=== PATIENT | female | born 1990 | race Caucasian/White ===

== ENCOUNTER 2017-04-03 08:42 | Day surgery (SDC) | payer MEDICAID ==
[2017-04-03] MEDS ORDERED: NORMAL SALINE 1,000 ML IV ONE ×3 (09:00→11:30)
[2017-04-03 09:25] LABS: Hematocrit 27.4 % (37.0-47.0); Hemoglobin 8.8 gm/dL (12.5-16.0); Mean Cell Volume 89.5 fl (78-100); Mean Corpuscular Hemoglobin 28.8 pg (27-31); Mean Corpuscular Hgb Conc 32.1 g/dl (32-36); Mean Platelet Volume 10.9 fl (6.0-9.5); Neutrophil # 6.1 K/mm3 (1.3-6.0); Neutrophil % 77.7 % (42-75.0); Platelet Count 135 K/mm3 (150-450); Red Blood Count 3.06 M/mm3 (4.2-5.4); Red Cell Distribution Width 15.4 % (11.5-14.0); White Blood Count 7.9 K/mm3 (4.0-10.5)
[2017-04-03 09:34] LABS: INR 1.03 INR (0.90-1.10); Partial Thrombolplastin Time 28.4 Seconds (24-32); Prothrombin Time (Patient) 10.7 Seconds (9.4-11.4)
[2017-04-03] MEDS ORDERED: METHYLERGONOVINE MALEATE 0.2 MG/ML AMPUL IM ONE ×3 (09:57→10:15)
[2017-04-03] MEDS ORDERED: RINGER'S SOLUTION,LACTATED 1,000 ML IV PRN (09:57)
[2017-04-03] MEDS ORDERED: LORazepam 2 MG/ML DISP.SYRIN IV ONE (10:34)
[2017-04-03] MEDS ORDERED: LORazepam 2 MG/ML DISP.SYRIN ONE (10:36)
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
[2017-04-03] MEDS ORDERED: RINGER'S SOLUTION,LACTATED 1,000 ML IV ONE (11:05)
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
[2017-04-03] MEDS ORDERED: ceFAZolin SODIUM 1 GM VIAL IV ONE (11:15)
--- NOTE | 2017-04-03 11:53 | OR ---
Operative Report - Dictated Report Narrative: Operative report: 04/03/2017 Preoperative diagnosis: Profuse vaginal bleeding, acute blood loss anemia Postoperative diagnosis: Same with the addition of vaginal laceration Procedure: Exam under anesthesia, repair of vaginal laceration Surgeon: Lina Doherty D.O. Communications Maintainer: OR staff Anesthesia: sedation IV fluids: 500 Milliliters Urine output: Adequate clear urine, Marshall in place Findings: Large blood clots within the vaginal vault and a midline first-degree vaginal laceration with active bleeding EBL: 50 Milliliters during the procedure, approximately 1000 mL's were on the patient's pad and Mohit prior to the vaginal prep Drains: Marshall Pathology: None Complications: None Condition: Stable, fluids and blood transfusing at the end of the procedure The patient was taken to the operating room. Anesthesia was found to be adequate. The patient was prepped with a vigorous external prep and a gentle internal prep in the dorsal lithotomy position. After draping the patient in addition no internal prep was made removing blood clots from the vagina. Retractors were then placed in the vagina and a bleeding first-degree laceration was noted on the posterior vagina approximately 5 cm in length. 2-0 Vicryl was then used in a running lock fashion to obtain hemostasis. A second suture was used to oversew this area as it continued to bleed slightly. Complete hemostasis was obtained. The vagina again was inspected for additional lacerations. No blood was noted in the vault. The cervix was intact without bleeding. The remaining vaginal jacome and posterior fornix were intact. The repaired laceration was again inspected and was again hemostatic. Retractors were removed. The Marshall was left in place due to the patient receiving 5 L of fluid and one unit of blood prior to surgery and diuresing well. The patient tolerated the procedure well. Sponge, lap, needle, and instrument counts were correct throughout the entire procedure. The patient was taken to the recovery room in stable condition.
[2017-04-03] MEDS ORDERED: oxyCODONE HCL/ACETAMINOPHEN 1 TAB TABLET PO PRN (11:54)
[2017-04-03] MEDS ORDERED: IBUPROFEN 600 MG TABLET PO PRN (11:54)
[2017-04-03 15:56] VITALS: BP 111/69
== END 2017-04-03 10:30 | disposition home or self-care (01) ==
LOC: ER 08:42 → AMB 10:29
PROVIDERS: ATTEND Obstetrics & Gynecology Gynecologic Oncology
PROC: 0UQG7ZZ Repair Vagina, Via Natural or Artificial Opening (ICD-10-PCS; principal; 2017-04-03 10:47)
DX: S31.41XA Laceration without foreign body of vagina and vulva, initial encounter (principal); D62 Acute posthemorrhagic anemia; F17.200 Nicotine dependence, unspecified, uncomplicated; W50.0XXA Accidental hit or strike by another person, initial encounter
CPT/HCPCS: 36415; 57200; 76856; 81241; 84702; 85025; 85610; 85730; 86850; 86900; 96365; 96372; 99285; P9016

== ENCOUNTER 2017-06-11 08:37 | Emergency (ER) | payer MEDICAID ==
[2017-06-11 08:54] VITALS: BP 123/38
== END 2017-06-11 09:50 | disposition left against medical advice (07) ==
LOC: ER 08:37
DX: Z53.21 Procedure and treatment not carried out due to patient leaving prior to being seen by health care provider (principal)

== ENCOUNTER 2017-07-18 12:23 | Emergency (ER) | payer SELFPAY ==
[2017-07-18 12:40] VITALS: BP 107/67
--- NOTE | 2017-07-18 13:49 | ERNOTE ---
[facility] Date of Service: 07/18/17 Presenting Symptoms: other - Sore throat and ear pain Time Seen by Provider: 07/18/17 13:47 Source: patient, RN notes reviewed Exam Limitations: no limitations - Immun/Allergies/Home Medications Immunizations: IMMUNIZATION HX Immunizations Up to Date Yes History of Influenza Vaccine No Hx Pneumococcal Vaccination No Allergies/Adverse Reactions: Allergies Allergy/AdvReac Type Severity Reaction Status Date / Time No Known Allergies Allergy Verified 07/18/17 12:36 Home Medications: HOME MEDICATIONS Etonogestrel [Nexplanon] 68 mg SQ DAILY 07/18/17 [Last Taken Unknown] - History of Present Illness Narrative: 26 year old female with right ear pain that began last evening. She took Motrin last night without improvement. She also reports a cough and sore throat. Date (Duration): 07/17/17 ENT Location: Present: ear (R) Prearrival Treatment: Present: over the counter meds Prior Treament: Denies: recently seen Review of Systems - Review of Systems Constitutional: Present: malaise. Absent: fever, chills EYE: Absent: eye pain, eye discharge ENT: Present: ear pain, nose congestion, sore throat. Absent: ear discharge, nasal drainage, throat swelling Respiratory: Present: cough. Absent: shortness of breath, wheezing Cardiology: Absent: chest pain, syncope Gastrointestinal/Abdominal: Absent: nausea, abdominal pain Genitourinary: Present: no symptoms reported Musculoskeletal: Absent: back pain, joint pain Skin: Absent: rash, lesions Neurological: Absent: headache, dizziness/light-headedness Endocrine: Present: no symptoms reported Hematologic/Lymphatic: Present: no symptoms reported Psych: Present: no symptoms reported - Patient's Past Medical History Patient History - Medical: Migraines Patient History - Cardiac/Respiratory: No pertinent hx Patient History - Cancer: No Hx of Cancer Patient History - Surgical Procedures: T & A Patient History - Other: None LMP (females 10-50): other - Social History Living Situations: home Abuse History: No History of abuse Psych History: No pertinent hx Smoking Status: Never smoker Have you smoked in the past 12 months: No Do you dip or chew tobacco: No Alcohol Use: none Drug Use: none - Immunizations Immunizations Up to Date: Yes Hx Pneumococcal Vaccination: No History of Influenza Vaccine: No Physical Exam - Physical Exam General Appearance: Present: alert, no apparent distress, thin Head Exam: Present: tenderness - Right TMJ region. Absent: swelling Eye Exam: Normal inspection: bilateral Ears, Nose, Throat: Present: nasal congestion, pharyngeal erythema. Absent: abnormal TM (R), abnormal TM (L), pharyngeal swelling, dry mucous membranes Neck: Present: supple, tender lateral - Right. Absent: lymphadenopathy (R), lymphadenopathy (L) Respiratory: Present: no respiratory distress, normal breath sounds, no accessory muscle use, lungs clear Cardiovascular/Chest: Present: regular rate, rhythm, no murmur Extremity Exam: Present: normal inspection, normal range of motion Neurological Exam: Present: alert, oriented, normal mood/affect, no motor/ sensory deficits Skin Exam: Present: normal color, warm/dry ED Progress - Results and Orders Patient's Lab Results:: I have reviewed the patient's lab results. - Vital Signs Patient's Vital Signs:: I have reviewed the patient's vital signs. Vital Signs: Vital Signs 07/18/17 12:36 Temperature 36.2 C L Respiratory 15 Rate Blood Pressure 107/67 - Progress/Reassessment Chief Complaint: Earache Progress:: Unchanged Departure Clinical Impression: Upper respiratory infection, viral - Departure Disposition: Home self-care Condition: Stable Instructions: Upper Respiratory Infection, Adult, [id number] Referrals: Claire Dover MD [Primary Care Provider] -
== END 2017-07-18 14:12 | disposition home or self-care (01) ==
LOC: ER 12:23
DX: J06.9 Acute upper respiratory infection, unspecified; B97.89 Other viral agents as the cause of diseases classified elsewhere
CPT/HCPCS: 87081; 87430; 99282

== ENCOUNTER 2018-05-17 00:10 | Inpatient (IN) ==
[2018-05-17] MEDS ORDERED: RINGER'S SOLUTION,LACTATED 1,000 ML IV ONE (00:35)
[2018-05-17] MEDS ORDERED: DEXTROSE 5%-LACTATED RINGERS 1,000 ML IV PRN (00:35)
[2018-05-17] MEDS ORDERED: ONDANSETRON HCL/PF 2 MG/ML VIAL IV PRN ×2 (00:35→10:05)
[2018-05-17] MEDS ORDERED: OXYTOCIN/DEXTROSE 5%-WATER 30 UNITS/500 ML BAG IV ONE ×2 (00:35→15:38)
[2018-05-17] MEDS: MISOPROSTOL 100 MCG TABLET VG PRN ×2 (00:55→05:12)
[2018-05-17 05:28] LABS: Cocaine Ur Negative (NEGATIVE); Urine Barbiturate Negative (NEGATIVE); Urine Benzodiazepines Negative (NEGATIVE); Urine Opiates Negative (NEGATIVE); Urine PCP Negative (NEGATIVE); Urine THC Negative (NEGATIVE)
[2018-05-17] MEDS ORDERED: BUPIVACAINE HCL/0.9 % NACL/PF 250 ML EP PRN (10:05)
[2018-05-17] MEDS ORDERED: NALOXONE HCL 1 MG/1 ML SYRG IV PRN (10:05)
--- NOTE | 2018-05-17 10:07 | ANES ---
Anesthesia Pre Procedure Eval Vitals/Labs: Last Vital Signs Temp 36.4 C 05/17/18 01:32 Pulse 83 05/17/18 01:32 Resp 18 05/17/18 01:32 BP 115/59 05/17/18 01:32 Pulse Ox 98 05/17/18 01:32 HOME MEDICATIONS [id number] 400 mcg-om3 35 mg-dha 25 mg-epa 5 mg-fish oil chewable tablet 2 tab PO DAILY tab 02/13/18 [Last Taken Unknown] Allergies/Adverse Reactions: Allergies Allergy/AdvReac Type Severity Reaction Status Date / Time No Known Allergies Allergy Verified 05/17/18 00:41 - Planned Procedure Planned Procedure: LABOR Medication List Reviewed:: Yes Allergies Verified: Yes Medical History (Last Reviewed 05/17/18 @ 10:05 by Ace Castano CRNA) Anemia Onset Date: ~2016 Anemia affecting Onset Date: ~2016 Currently Onset Date: ~11/2017 Migraine Onset Date: Unknown Cervical dysplasia Onset Date: ~09/28/16 Constipation Onset Date: Unknown Fibroids, intramural Onset Date: Unknown Hemorrhoids Onset Date: Unknown Abscess Onset Date: ~01/28/16 Chlamydia Onset Date: ~2005 induced hypertension, antepartum Onset Date: ~12/2011 Scabies Onset Date: ~02/2016 Thrombocytopenia affecting Onset Date: ~2011 Surgical History (Last Reviewed 05/17/18 @ 10:05 by Ace Castano CRNA) H/O LEEP Onset Date: ~10/06/16 H/O vaginal surgery Onset Date: ~04/03/17 History of colposcopy Onset Date: ~09/28/16 History of incision and drainage Onset Date: ~01/27/16 History of tonsillectomy Onset Date: ~2005 Family History (Last Reviewed 05/17/18 @ 10:05 by Ace Castano CRNA) Father Psoriasis Grandmother Blood clots in brain Mother Osteoarthritis Eczema - Family Anesthesia History Family History:: no untoward family reactions to anesthesia, no familial bleeding tendencies, no family history of clotting disorders, no family history of premature - Airway/Neck/Teeth Within Normal Limits:: Yes Teeth Condition: Intact Neck Exam: non-tender Mallampatti Score: 2 Thyromental (T-M) distance: > 6 cm Mandibulo Hyoid distance: > 3 cm - Respiratory Respiratory: chest non-tender, lungs clear Smoking Status: Never smoker Sleep Apnea currently treated: No Sleep Apnea by current assessment: No - Cardiovascular Patient History - Cardiac/Respiratory: No pertinent hx Tolerates Activity: Fair Heart Sounds: S1 & S2, Regular - Anesthesia Assessment and Plan ASA Class: PS, II, E Anesthesia Type Plan: Epidural - CSE for labor analgesia
[2018-05-17] MEDS ORDERED: fentaNYL CITRATE/PF 50 MCG/ML AMPUL IT SCH (10:15)
--- NOTE | 2018-05-17 10:27 | ANES ---
Post Anesthesia Discharge - Transfer of Care Transfer of Care handoff given to nurse: Yes - Discharge from PACU Discharge from PACU when meets criteria: Yes - Comfortable now.
--- NOTE | 2018-05-17 10:29 | ANES ---
Anesthesia Procedure Note Procedure Note: ANESTHESIA PROCEDURE NOTE Date of Procedure: 05/17/2018 Time of procedure: 10:05 AM. Performed by: Ace Castano CRNA, MSN Communications Strategist: Angelita Gooden RN. Preprocedure diagnosis: Active labor, labor pain. Post procedure diagnosis: Same. Procedure:Epidural for labor analgesia L3 4. Indications: Labor pain. Findings: See below. Details of the procedure: The patient was placed on the side of the bed in sitting positionand prepped with DuraPrep then draped in a sterile fashion. Lidocaine 1% was infiltrated to the skin and subcutaneous tissues at the level of the L34 interspace. An 18-gauge Touhy needle was used to approach the epidural space with loss of resistance technique. Once loss of resistance was achieved a 27-gauge spinal needle was passed through the epidural needle and CSF was contacted. After CSF returned, 20 mcg of fentanyl was injected in the spinal needle was removed the epidural catheter was then threaded approximately 4 cm in the epidural needle was removed. The catheter was taped in place and after careful aspiration 3 mL of 1.5% lidocaine with 1-200,000 epinephrine was injected without change in maternal heart rate or sensorium. . EBL: Minimal. Fluids: N/A. Specimen: N/A. Post procedure condition: The patient tolerated the procedure well with. Rel ief. No complications were noted. Thank you for this consultation. Ace Castano CRNA, MSN
--- NOTE | 2018-05-17 10:30 | HP ---
Chief Complaint - Chief Complaint Date of Service: 05/17/18 Time of Service: 10:21 Chief Complaint: induction of labor History of Present Illness: 27 yo at 39 1/7 wks presents to L&D for elective induction of labor. This complicated by anemia, cleft lip, desires permanent sterilization, right inguinal hernia, and history of GHTN. Rh positive Rubella immune GBS positive Medical History (Last Reviewed 05/17/18 @ 10:05 by Ace Castano CRNA) Anemia Onset Date: ~2016 Anemia affecting Onset Date: ~2016 Currently Onset Date: ~11/2017 Migraine Onset Date: Unknown Cervical dysplasia Onset Date: ~09/28/16 Constipation Onset Date: Unknown Fibroids, intramural Onset Date: Unknown Hemorrhoids Onset Date: Unknown Abscess Onset Date: ~01/28/16 Chlamydia Onset Date: ~2005 induced hypertension, antepartum Onset Date: ~12/2011 Scabies Onset Date: ~02/2016 Thrombocytopenia affecting Onset Date: ~2011 Surgical History: Surgical History (Last Reviewed 05/17/18 @ 10:05 by Ace Castano CRNA) H/O LEEP Onset Date: ~10/06/16 H/O vaginal surgery Onset Date: ~04/03/17 History of colposcopy Onset Date: ~09/28/16 History of incision and drainage Onset Date: ~01/27/16 History of tonsillectomy Onset Date: ~2005 Family History: Family History (Last Reviewed 05/17/18 @ 10:05 by Ace Castano CRNA) Father Psoriasis Grandmother Blood clots in brain Mother Osteoarthritis Eczema Social History: Preferred Language Latvian Smoking Status Never smoker Abuse History No History of abuse Psych History No pertinent hx Review Of Systems (GEN) - Review of Systems EENTM: Present: No Symptoms Reported Respiratory: Present: No Symptoms Reported Cardiac: Present: No Symptoms Reported Abdominal: Present: No Symptoms Reported Genitourinary: Present: No Symptoms Reported Musculoskeletal: Present: No Symptoms Reported Neurological: Present: No Symptoms Reported Skin: Present: No Symptoms Reported Endocrine: Present: No Symptoms Reported Immunizations: IMMUNIZATION HX Immunizations Up to Date Yes History of Influenza Vaccine No Hx Pneumococcal Vaccination No Allergies/Adverse Reactions: Allergies Allergy/AdvReac Type Severity Reaction Status Date / Time No Known Allergies Allergy Verified 05/17/18 00:41 Home Medications: HOME MEDICATIONS [id number] 400 mcg-om3 35 mg-dha 25 mg-epa 5 mg-fish oil chewable tablet 2 tab PO DAILY tab 02/13/18 [Last Taken Unknown] Exam - Exam Vital Signs: Vital Signs - Last Taken Temp 36.4 C 05/17/18 01:32 Pulse 83 05/17/18 01:32 Resp 18 05/17/18 01:32 BP 115/59 05/17/18 01:32 Pulse Ox 98 05/17/18 01:32 Constitutional: Present: Alert, Oriented x3, Cooperative, No distress ENT Exam: Present: hearing grossly normal Respiratory: Present: lungs clear, no respiratory distress Cardiovascular/Chest: Present: normal peripheral pulses, regular rate, rhythm, no edema Abdomen: Present: soft, nontender, other - gravid Extremity: Present: no pedal edema, no calf tenderness Skin Exam: Present: normal color, warm/dry, no cyanosis Lymphatic: Present: no adenopathy Neurologic: Present: alert, normal mood/affect, oriented x 3 Appearance: Present: appropriate appearance, appropriate insight Eye contact: Present: cooperative, good eye contact Thoughts: Present: normal thought pattern Diagnostic Studies: Laboratory Results Urine Opiates Screen Negative (NEGATIVE) 05/17/18 05:08 Barbiturate Screen Negative (NEGATIVE) 05/17/18 05:08 Ur Phencyclidine Scrn Negative (NEGATIVE) 05/17/18 05:08 Urine Amphetamine Negative (NEGATIVE) 05/17/18 05:08 U Benzodiazepines Scrn Negative (NEGATIVE) 05/17/18 05:08 Urine Cocaine Screen Negative (NEGATIVE) 05/17/18 05:08 Urine Marijuana (THC) Negative (NEGATIVE) 05/17/18 05:08 Assessment/Plan - Assessment/Plan (1) Encounter for induction of labor Assessment: Admit for cytotec cervical ripening and pitocin augmentation as needed. Epidural PRN. Peds and OB aware of cleft lip. Problem: Acute (2) Group B streptococcal carriage complicating Problem: Acute (3) complicated by cleft lip Problem: Acute Qualifiers: Fetus number: single or unspecified fetus Qualified Code(s): O35.8XX0 - Maternal care for other (suspected) abnormality and damage, not applicable or unspecified (4) Anemia affecting Problem: Acute Qualifiers: Trimester: unspecified trimester Qualified Code(s): O99.019 - Anemia complicating , unspecified trimester
--- NOTE | 2018-05-17 12:18 | ANES ---
Post Anesthesia Assessment - Vital Signs Vitals: Last Vital Signs Temp 37 C 05/17/18 10:23 Pulse 77 05/17/18 10:23 Resp 20 05/17/18 10:23 BP 132/71 05/17/18 10:23 Pulse Ox 99 05/17/18 10:23 Airway Patency: Normal - Mental Status Level Of Consciousness: Awake - Pain Level Pain Score: 0 - N/V Assessment Nausea/Vomiting Presence: None Dehydration:: No
[2018-05-17] MEDS ORDERED: BENZOCAINE/MENTHOL 81 SPRAY CAN TP PRN (15:38)
[2018-05-17] MEDS ORDERED: BISACODYL 10 MG SUPP.RECT RC PRN (15:38)
[2018-05-17] MEDS ORDERED: oxyCODONE HCL/ACETAMINOPHEN 1 TAB TABLET PO PRN ×2 (15:38)
[2018-05-17] MEDS ORDERED: HYDROCORTISONE 30 APPL TUBE TP PRN (15:38)
[2018-05-17] MEDS ORDERED: GLYCERIN/WITCH HAZEL LEAF 40 APPL BOX TP PRN (15:38)
[2018-05-17] MEDS ORDERED: SENNOSIDES 8.6 MG TABLET PO PRN (15:38)
--- NOTE | 2018-05-17 15:42 | OR ---
Operative Report - Dictated Report Narrative: Spontaneous vaginal delivery of viable male at 1522 on 05/17/2018 with Apgars 7 and 9, weighing 2976 g in ANA LUISA position with right hand at face and loop of cord at neck. Cord clamping delayed approximately 1 minute Placenta delivered complete, intact, with three vessel cord Estimated blood loss: less than 50 ml Anesthesia: epidural Lacerations: None cleft lip involving part of gum line noted, palate appears to be intact. History for MU Definition: * The number of deliveries resulting in a live the patient experienced prior to current hospitalization * The previous delivery of live twins or any live multiple gestation is considered one live event. *If primagravida or nulliparous is documented select zero for the number of previous live births. Live Events: 2
[2018-05-17] MEDS: IBUPROFEN 800 MG TABLET PO PRN (17:12)
[2018-05-17] MEDS: DOCUSATE SODIUM 100 MG CAPSULE PO SCH (20:43)
[2018-05-18] MEDS: IBUPROFEN 800 MG TABLET PO PRN ×4 (01:52→21:32)
[2018-05-18] MEDS: DOCUSATE SODIUM 100 MG CAPSULE PO SCH ×2 (08:46→21:32)
[2018-05-18] MEDS: PRENATAL VITS96/IRON FUM/FOLIC 1 TAB TABLET PO SCH (08:46)
--- NOTE | 2018-05-18 08:50 | PN ---
Subjective - Date and Time Seen Date: 05/18/18 Time: 08:49 Objective - Vitals Vitals: Last Vital Signs Temp 36.2 C 05/18/18 02:00 Pulse 71 05/18/18 02:00 Resp 18 05/18/18 02:00 BP 118/70 05/18/18 02:00 Pulse Ox 98 05/18/18 02:00 Patient denies complaints. Lochia wnl Abdomen - soft, nontender Uterus - firm, at umbilicus - 1 No calf tenderness Impression: day #1 - s/p spontaneous vaginal delivery. Plan: Continue routine care Cauti Physician Documentation - Urinary Catheter Management Urethral ([place]) Date of Insertion: 05/17/18 Time of Insertion: 10:40 Date of Removal: 05/17/18 Time of Removal: 15:15 Assessment/Plan - Problems/Diagnosis (1) Encounter for induction of labor Problem: Acute (2) Group B streptococcal carriage complicating Problem: Acute (3) complicated by cleft lip Problem: Acute Qualifiers: Fetus number: single or unspecified fetus Qualified Code(s): O35.8XX0 - Maternal care for other (suspected) abnormality and damage, not applicable or unspecified (4) Anemia affecting Problem: Acute Qualifiers: Trimester: unspecified trimester Qualified Code(s): O99.019 - Anemia complicating , unspecified trimester
[2018-05-19] MEDS: IBUPROFEN 800 MG TABLET PO PRN (04:50)
[2018-05-19 07:32] VITALS: BP 122/85
--- NOTE | 2018-05-19 08:39 | PN ---
Subjective - Date and Time Seen Date: 05/19/18 Time: 08:37 Objective - Vitals Vitals: Last Vital Signs Temp 36.6 C 05/19/18 07:30 Pulse 73 05/19/18 07:30 Resp 16 05/19/18 07:30 BP 122/85 05/19/18 07:30 Pulse Ox 99 05/19/18 07:30 Patient denies complaints. Bottle feeding Lochia wnl Abdomen - soft, nontender Uterus - firm, at umbilicus - 2 No calf tenderness Impression: day #2 - s/p spontaneous vaginal delivery. Plan: Routine discharge instructions, Patient to follow-up in the office in 2 weeks to schedule for her tubal ligation Cauti Physician Documentation - Urinary Catheter Management Urethral ([place]) Date of Insertion: 05/17/18 Time of Insertion: 10:40 Date of Removal: 05/17/18 Time of Removal: 15:15 Assessment/Plan - Problems/Diagnosis (1) Encounter for induction of labor Problem: Acute (2) Group B streptococcal carriage complicating Problem: Acute (3) complicated by cleft lip Problem: Acute Qualifiers: Fetus number: single or unspecified fetus Qualified Code(s): O35.8XX0 - Maternal care for other (suspected) abnormality and damage, not applicable or unspecified (4) Anemia affecting Problem: Acute Qualifiers: Trimester: unspecified trimester Qualified Code(s): O99.019 - Anemia complicating , unspecified trimester
[2018-05-19] MEDS: PRENATAL VITS96/IRON FUM/FOLIC 1 TAB TABLET PO SCH (12:43)
[2018-05-19] MEDS: DOCUSATE SODIUM 100 MG CAPSULE PO SCH (12:43)
== END 2018-05-19 10:45 | disposition home or self-care (01) | DRG 807 ==
LOC: OB 00:10
PROVIDERS: ADMIT Obstetrics & Gynecology; ATTEND Obstetrics & Gynecology
CPT/HCPCS: 59025; 80307; 88307; G0479